=== PATIENT | male | born 1970 | race Two or more races ===

== ENCOUNTER 2018-10-13 19:34 | Emergency (ER) | payer MEDICAID, SELFPAY ==
[~2018-10-13] VITALS: Ht 167.6 cm; Wt 72.0 kg
[2018-10-13 21:27] LABS: BASOPHILS # (AUTO) 0.03 x10^3/uL (0-0.1); BASOPHILS % (AUTO) 1 % (0-1); EOSINOPHILS # (AUTO) 0.05 x10^3/uL (0-0.4); EOSINOPHILS % (AUTO) 1 % (1-7); LYMPHOCYTES # (AUTO) 3.02 x10^3/uL (1-3.4); LYMPHOCYTES % (AUTO) 47 % (22-44); MD NO; MEAN CORPUSCULAR HEMOGLOBIN 34.5 pg (27.5-34.5); MEAN CORPUSCULAR HGB CONC 32.9 g/dL (33.2-36.2); MEAN CORPUSCULAR VOLUME 104.6 fL (81-97); MEAN PLATELET VOLUME 7.4 fL (7.4-10.4); MONOCYTES # (AUTO) 0.69 x10^3/uL (0.2-0.8); MONOCYTES % (AUTO) 11 % (2-9); NEUTROPHILS # (AUTO) 2.63 x10^3/uL (1.8-6.8); NEUTROPHILS % (AUTO) 41 % (42-75); PLATELET COUNT 179 x10^3/uL (130-400); RED BLOOD COUNT 3.71 x10^6/uL (4.38-5.82); RED CELL DISTRIBUTION WIDTH 14.8 % (9.4-14.8)
[2018-10-13 21:28] LABS: ALBUMIN 3.3 g/dL (3.4-5.0); ANION GAP 9 mmol/L (5-15); CALCIUM 7.8 mg/dL (8.5-10.1); CHLORIDE 107 mmol/L (98-107)
[2018-10-13 21:34] LABS: ALANINE AMINOTRANSFERASE 37 U/L (12-78); ALKALINE PHOSPHATASE 83 U/L (45-117); BILIRUBIN,TOTAL 0.3 mg/dL (0.2-1.0); CREATININE 1.02 mg/dL (0.7-1.3); TOTAL PROTEIN 7.2 g/dL (6.4-8.2); TROPONIN I < 0.015 ng/mL (0.000-0.045)
[2018-10-13 21:54] VITALS: BP 132/81
== END 2018-10-13 22:34 | disposition home or self-care (01) ==
LOC: ED 22:09
DX: R42 Dizziness and giddiness (principal); F10.120 Alcohol abuse with intoxication, uncomplicated; Z72.9 Problem related to lifestyle, unspecified
CPT/HCPCS: 36415; 71045; 80053; 80307; 83690; 84484; 85025; 93005; 99284

== ENCOUNTER 2019-03-09 08:10 | Inpatient (IN) | payer MEDICAID ==
[~2019-03-09] VITALS: Ht 177.8 cm; Wt 63.9 kg
[2019-03-09] MEDS ORDERED: SODIUM CHLORIDE FLUSH 10ML SYR IVF ONE (08:30)
[2019-03-09] MEDS ORDERED: PLEASE ENTER HEIGHT AND WEIGHT MC SCH (08:30)
[2019-03-09] MEDS ORDERED: SODIUM CHLORIDE 0.9% 1,000ML IVBOLUS ONE ×2 (08:30)
--- NOTE | 2019-03-09 08:53 | NUR ---
Pt BIB [facility], found outside the bus station after apperently spending the night in the elements. Pt's temperature did not read for EMS, pt's temt here found to be less than 85 oral and temp would not read rectally. Pt's cold wet clothing has been removed, warming measure currently being applied, barehugger applied, warmed fluids infusing. Per EMS & past visits to this ED, pt has a past medical history of ETOH addition & seizure. Pt is not answering questions or following instuction appropriately. Bedside report to Alma RN & pt care being transferred. Pt has been moved to tr3. Primary RN Alma attempting to place howell cath to obtain core temp & for core warming, first attempt unsuccessful d/t apparent urethral stricture.
[2019-03-09] MEDS ORDERED: LIDOCAINE 2%,20 ML JEL.PF.APP MM ONE ×2 (08:54→09:30)
[2019-03-09] MEDS ORDERED: NALOXONE 0.4 MG/ML, 1ML IVPush ONE (09:00)
[2019-03-09 09:04] LABS: MEAN CORPUSCULAR HEMOGLOBIN 35.2 pg (27.5-34.5); MEAN CORPUSCULAR HGB CONC 32.5 g/dL (33.2-36.2); MEAN CORPUSCULAR VOLUME 108.2 fL (81-97); MEAN PLATELET VOLUME 7.7 fL (7.4-10.4); PLATELET COUNT 203 x10^3/uL (130-400); RED BLOOD COUNT 3.88 x10^6/uL (4.38-5.82); RED CELL DISTRIBUTION WIDTH 14.1 % (9.4-14.8)
[2019-03-09 09:07] LABS: ALANINE AMINOTRANSFERASE 62 U/L (12-78); ALBUMIN 3.1 g/dL (3.4-5.0); ANION GAP 5 mmol/L (5-15); CALCIUM 7.9 mg/dL (8.5-10.1); CHLORIDE 101 mmol/L (98-107)
[2019-03-09 09:10] LABS: ALKALINE PHOSPHATASE 126 U/L (45-117); BILIRUBIN,TOTAL 0.2 mg/dL (0.2-1.0); TOTAL PROTEIN 6.5 g/dL (6.4-8.2)
[2019-03-09 09:37] LABS: MD YES
[2019-03-09] MEDS ORDERED: FENTANYL PF 100 MCG/2ML ONE (10:06)
--- NOTE | 2019-03-09 10:10 | NUR ---
PT MED NOTED FOR THORACIC BACK PAIN. PT TO CT WITH RN & EMT TRANSPORT
[2019-03-09 10:20] LABS: BANDS%(MANUAL) 4 % (0-7); LYMPH#(MANUAL) 3.89 x10^3/uL (1-3.4); LYMPHS% (MANUAL) 48 % (22-44); REACTIVE LYMPHS # (MANUAL) 0.49 x10^3/uL (0-0); REACTIVE LYMPHS % (MANUAL) 6 % (0-0)
[2019-03-09 10:21] LABS: BAND#(MANUAL) 0.32 x10^3/uL; MONOS#(MANUAL) 0.41 x10^3/uL (0.3-2.7); MONOS% (MANUAL) 5 % (2-9)
[2019-03-09 10:22] LABS: SEGS% (MANUAL) 37 % (42-75)
[2019-03-09 10:24] LABS: <PLATELET ESTIMATE> ADEQUATE; <PLT MORPHOLOGY> NORMAL PLT MORPH; ANISOCYTOSIS 1+
[2019-03-09] MEDS ORDERED: FENTANYL PF 100 MCG/2ML IVPush ONE (10:30)
--- NOTE | 2019-03-09 10:41 | NUR ---
PT RTD FROM CT. 12FR COUDE INSERTED W/O DIFFICULTY. +CLEAR YELLOW UOP NOTED. BALLOON FILL VOLUME 5ML
[2019-03-09] MEDS ORDERED: ONDANSETRON ODT 4 MG PO PRN (11:00)
[2019-03-09] MEDS ORDERED: POLYETHYLENE GLYCOL 17 GM PACKET PO PRN (11:00)
[2019-03-09] MEDS ORDERED: OXYcodone IR 5MG TABLET PO PRN (11:00)
[2019-03-09] MEDS ORDERED: BISACODYL 10 MG SUPP PR PRN (11:00)
[2019-03-09] MEDS ORDERED: ONDANSETRON 2MG/ML, 2ML IVPush PRN (11:00)
[2019-03-09] MEDS: PLEASE ENTER ALLERGIES MC SCH ×2 (11:46→12:51)
[2019-03-09 11:48] LABS: ALANINE AMINOTRANSFERASE 54 U/L (12-78); ALBUMIN 2.7 g/dL (3.4-5.0); ANION GAP 8 mmol/L (5-15); CALCIUM 6.7 mg/dL (8.5-10.1); CHLORIDE 106 mmol/L (98-107); CREATININE 0.35 mg/dL (0.7-1.3)
[2019-03-09 11:53] LABS: TROPONIN I 0.043 ng/mL (0.000-0.045)
[2019-03-09 11:58] LABS: ALKALINE PHOSPHATASE 106 U/L (45-117); BILIRUBIN,TOTAL 0.2 mg/dL (0.2-1.0); TOTAL PROTEIN 5.7 g/dL (6.4-8.2)
[2019-03-09] MEDS ORDERED: ENOXAPARIN 40 MG/0.4 ML ONE (12:10)
[2019-03-09] MEDS: ENOXAPARIN 40 MG/0.4 ML SQ SCH (12:15)
[2019-03-09 12:17] LABS: AMPHETAMINE SCREEN, URINE Negative (Negative); BARBITURATE SCREEN, URINE Negative (Negative); BENZODIAZEPINE SCREEN, URINE Negative (Negative); CANNABINOID SCREEN, URINE Negative (Negative); COCAINE SCREEN, URINE Negative (Negative); METHADONE SCREEN, URINE Negative (Negative); OPIATE SCREEN, URINE Negative (Negative)
[2019-03-09] MEDS: SODIUM CHLORIDE 0.9% 1,000 ML IV SCH ×2 (12:51→21:20)
[2019-03-09 13:10] VITALS: BP 98/64
[2019-03-09] MEDS: POTASSIUM CHLORIDE 20 MEQ, MAGNESIUM SULFATE 1 GM, THIAMINE 200 MG, FOLIC ACID 1 MG, MV... IV SCH (13:45)
[2019-03-09] MEDS ORDERED: MAGNESIUM SULFATE PMX 2GM/50ML 50 ML IV ONE (14:30)
[2019-03-10 04:53] LABS: CHLORIDE 105 mmol/L (98-107)
[2019-03-10 05:11] LABS: ALANINE AMINOTRANSFERASE 61 U/L (12-78); ALBUMIN 2.6 g/dL (3.4-5.0); ALKALINE PHOSPHATASE 99 U/L (45-117); ANION GAP 7 mmol/L (5-15); BILIRUBIN,TOTAL 0.7 mg/dL (0.2-1.0); CALCIUM 7.1 mg/dL (8.5-10.1); CREATINE KINASE, TOTAL 2142 U/L (39-308); CREATININE 0.54 mg/dL (0.7-1.3); TOTAL PROTEIN 5.7 g/dL (6.4-8.2)
[2019-03-10 05:18] LABS: MEAN CORPUSCULAR HEMOGLOBIN 35.4 pg (27.5-34.5); MEAN CORPUSCULAR HGB CONC 32.6 g/dL (33.2-36.2); MEAN CORPUSCULAR VOLUME 108.7 fL (81-97); MEAN PLATELET VOLUME 8.5 fL (7.4-10.4); PLATELET COUNT 188 x10^3/uL (130-400); RED BLOOD COUNT 3.33 x10^6/uL (4.38-5.82); RED CELL DISTRIBUTION WIDTH 14.1 % (9.4-14.8)
[2019-03-10 05:52] LABS: BASOPHILS % (AUTO) 0 % (0-1); EOSINOPHILS % (AUTO) 0 % (1-7); LYMPHOCYTES % (AUTO) 22 % (22-44); MD SCAN; MONOCYTES # (AUTO) 0.37 x10^3/uL (0.2-0.8); MONOCYTES % (AUTO) 7 % (2-9); NEUTROPHILS # (AUTO) 3.89 x10^3/uL (1.8-6.8); NEUTROPHILS % (AUTO) 71 % (42-75)
[2019-03-10] MEDS ORDERED: MAGNESIUM SULFATE PMX 2GM/50ML 50 ML IV ONE (06:30)
[2019-03-10] MEDS ORDERED: DEXTROSE 4 GM TAB.CHEW PO PRN (06:30)
[2019-03-10] MEDS ORDERED: DEXTROSE 50%, 50ML SYRINGE IVPush PRN (06:30)
[2019-03-10] MEDS ORDERED: GLUCAGON 1 MG IM PRN (06:30)
[2019-03-10] MEDS: SODIUM CHLORIDE 0.9% 1,000 ML IV SCH ×2 (07:56→20:26)
[2019-03-10] MEDS: SODIUM CHLORIDE FLUSH 10ML SYR IVF SCH ×2 (07:56→20:26)
[2019-03-10] MEDS ORDERED: LORazepam 2 MG/ML, 1ML IVPush PRN (09:00)
[2019-03-10] MEDS ORDERED: CHLORDIAZEPOXIDE 25 MG CAPSULE PO SCH (09:00)
[2019-03-10] MEDS: SENNA/DOCUSATE TABLET PO SCH (09:40)
[2019-03-10] MEDS: ERGOCALCIFEROL 50,000 UNIT CAPSULE PO SCH (09:44)
[2019-03-10] MEDS: ENOXAPARIN 40 MG/0.4 ML SQ SCH (10:58)
[2019-03-10] MEDS: POTASSIUM CHLORIDE 20 MEQ, MAGNESIUM SULFATE 1 GM, THIAMINE 200 MG, FOLIC ACID 1 MG, MV... IV SCH (11:00)
[2019-03-10 11:42] VITALS: BP 120/74
[2019-03-10] MEDS: CHLORDIAZEPOXIDE 5 MG CAPSULE PO SCH ×2 (16:00→20:26)
[2019-03-10 17:44] VITALS: BP 135/79
[2019-03-10 20:02] VITALS: BP 131/78
[2019-03-11 03:05] VITALS: BP 137/84
[2019-03-11] MEDS: SODIUM CHLORIDE 0.9% 1,000 ML IV SCH (05:30)
[2019-03-11 05:53] LABS: MEAN CORPUSCULAR HEMOGLOBIN 35.4 pg (27.5-34.5); MEAN CORPUSCULAR VOLUME 107.4 fL (81-97); MEAN PLATELET VOLUME 8.6 fL (7.4-10.4); PLATELET COUNT 139 x10^3/uL (130-400); RED BLOOD COUNT 3.35 x10^6/uL (4.38-5.82); RED CELL DISTRIBUTION WIDTH 13.9 % (9.4-14.8)
[2019-03-11] MEDS: ACETAMINOPHEN 325 MG TABLET PO PRN (05:54)
[2019-03-11 06:00] LABS: CHLORIDE 98 mmol/L (98-107)
[2019-03-11 06:13] LABS: MD YES
[2019-03-11 06:17] LABS: ALANINE AMINOTRANSFERASE 52 U/L (12-78); ALBUMIN 2.5 g/dL (3.4-5.0); ALKALINE PHOSPHATASE 107 U/L (45-117); ANION GAP 4 mmol/L (5-15); BAND#(MANUAL) 1.26 x10^3/uL; BANDS%(MANUAL) 15 % (0-7); BILIRUBIN,TOTAL 0.7 mg/dL (0.2-1.0); CALCIUM 7.6 mg/dL (8.5-10.1); CREATINE KINASE, TOTAL 958 U/L (39-308); CREATININE 0.49 mg/dL (0.7-1.3); LYMPH#(MANUAL) 1.51 x10^3/uL (1-3.4); LYMPHS% (MANUAL) 18 % (22-44); MONOS#(MANUAL) 0.25 x10^3/uL (0.3-2.7); MONOS% (MANUAL) 3 % (2-9); SEG#(MANUAL) 5.38 x10^3/uL (1.8-6.8); SEGS% (MANUAL) 64 % (42-75); TOTAL PROTEIN 5.9 g/dL (6.4-8.2)
[2019-03-11 06:18] LABS: <PLATELET ESTIMATE> ADEQUATE; <PLT MORPHOLOGY> NORMAL PLT MORPH
[2019-03-11] MEDS ORDERED: SODIUM PHOSPHATE 20 MMOL in SODIUM CHLORIDE 0.9% 500 ML IV ONE (07:30)
[2019-03-11] MEDS ORDERED: MAGNESIUM SULFATE PMX 2GM/50ML 50 ML IV ONE (07:30)
[2019-03-11 07:51] VITALS: BP 129/72
[2019-03-11] MEDS: CHLORDIAZEPOXIDE 5 MG CAPSULE PO SCH ×3 (08:16→20:23)
[2019-03-11] MEDS: SENNA/DOCUSATE TABLET PO SCH (08:16)
[2019-03-11] MEDS: SODIUM CHLORIDE FLUSH 10ML SYR IVF SCH ×2 (08:57→20:24)
[2019-03-11] MEDS: ENOXAPARIN 40 MG/0.4 ML SQ SCH (12:04)
[2019-03-11] MEDS: POTASSIUM CHLORIDE 20 MEQ, MAGNESIUM SULFATE 1 GM, THIAMINE 200 MG, FOLIC ACID 1 MG, MV... IV SCH (12:04)
[2019-03-11 12:28] VITALS: BP 118/66
[2019-03-11] MEDS: NICOTINE 14MG/24 HR PATCH.TD24 TD SCH (18:21)
[2019-03-11 19:20] VITALS: BP 120/80
[2019-03-12 01:37] VITALS: BP 123/64
[2019-03-12] MEDS: ACETAMINOPHEN 325 MG TABLET PO PRN (07:42)
[2019-03-12 07:50] VITALS: BP 145/91
[2019-03-12] MEDS: SODIUM CHLORIDE FLUSH 10ML SYR IVF SCH ×2 (09:00→22:07)
[2019-03-12] MEDS: SENNA/DOCUSATE TABLET PO SCH (09:00)
[2019-03-12] MEDS: CHLORDIAZEPOXIDE 5 MG CAPSULE PO SCH ×3 (10:16→22:07)
[2019-03-12] MEDS: ENOXAPARIN 40 MG/0.4 ML SQ SCH (10:16)
[2019-03-12] MEDS: POTASSIUM CHLORIDE 20 MEQ, MAGNESIUM SULFATE 1 GM, THIAMINE 200 MG, FOLIC ACID 1 MG, MV... IV SCH (11:25)
[2019-03-12 12:25] VITALS: BP 109/68
[2019-03-12] MEDS: NICOTINE 14MG/24 HR PATCH.TD24 TD SCH (18:22)
[2019-03-12 18:46] VITALS: BP 137/76
[2019-03-13 01:03] VITALS: BP 128/74
[2019-03-13 06:10] LABS: ANION GAP 7 mmol/L (5-15); CALCIUM 8.3 mg/dL (8.5-10.1); CHLORIDE 103 mmol/L (98-107)
[2019-03-13 06:13] LABS: CREATININE 0.61 mg/dL (0.7-1.3)
[2019-03-13 06:58] VITALS: BP 138/81
[2019-03-13] MEDS: SENNA/DOCUSATE TABLET PO SCH (08:31)
[2019-03-13] MEDS: SODIUM CHLORIDE FLUSH 10ML SYR IVF SCH ×2 (08:32→20:56)
[2019-03-13] MEDS: CHLORDIAZEPOXIDE 5 MG CAPSULE PO SCH ×3 (08:32→20:57)
[2019-03-13] MEDS: ACETAMINOPHEN 325 MG TABLET PO PRN (09:50)
[2019-03-13] MEDS: ENOXAPARIN 40 MG/0.4 ML SQ SCH (11:53)
[2019-03-13] MEDS: POTASSIUM CHLORIDE 20 MEQ, MAGNESIUM SULFATE 1 GM, THIAMINE 200 MG, FOLIC ACID 1 MG, MV... IV SCH (11:53)
[2019-03-13] MEDS ORDERED: MAGNESIUM SULFATE PMX 2GM/50ML 50 ML IV ONE (12:30)
[2019-03-13 13:55] VITALS: BP 102/63
[2019-03-13] MEDS: NICOTINE 14MG/24 HR PATCH.TD24 TD SCH (18:13)
[2019-03-13 18:59] VITALS: BP 126/81
[2019-03-14 01:57] VITALS: BP 152/83
[2019-03-14 07:40] VITALS: BP 114/71
[2019-03-14] MEDS: CHLORDIAZEPOXIDE 5 MG CAPSULE PO SCH ×3 (08:49→21:31)
[2019-03-14] MEDS: SENNA/DOCUSATE TABLET PO SCH (08:49)
[2019-03-14] MEDS: SODIUM CHLORIDE FLUSH 10ML SYR IVF SCH ×2 (08:50→21:00)
[2019-03-14] MEDS: ENOXAPARIN 40 MG/0.4 ML SQ SCH (12:55)
[2019-03-14 14:35] VITALS: BP 128/85
[2019-03-14] MEDS: NICOTINE 14MG/24 HR PATCH.TD24 TD SCH (18:08)
[2019-03-14 19:39] VITALS: BP 112/72
[2019-03-15 02:25] VITALS: BP 120/77
[2019-03-15 05:16] LABS: ANION GAP 10 mmol/L (5-15); CALCIUM 8.7 mg/dL (8.5-10.1); CHLORIDE 102 mmol/L (98-107); CREATININE 0.72 mg/dL (0.7-1.3)
[2019-03-15 07:50] VITALS: BP 111/73
[2019-03-15] MEDS: CHLORDIAZEPOXIDE 5 MG CAPSULE PO SCH ×2 (09:32→17:18)
[2019-03-15] MEDS: ACETAMINOPHEN 325 MG TABLET PO PRN (09:32)
[2019-03-15] MEDS: SODIUM CHLORIDE FLUSH 10ML SYR IVF SCH ×2 (09:33→20:17)
[2019-03-15] MEDS: SENNA/DOCUSATE TABLET PO SCH (09:33)
[2019-03-15] MEDS: ENOXAPARIN 40 MG/0.4 ML SQ SCH (11:55)
[2019-03-15 13:50] VITALS: BP 91/51
[2019-03-15] MEDS: NICOTINE 14MG/24 HR PATCH.TD24 TD SCH (17:18)
[2019-03-15 20:36] VITALS: BP 103/58
[2019-03-16 02:26] VITALS: BP 112/63
[2019-03-16] MEDS: ACETAMINOPHEN 325 MG TABLET PO PRN (05:17)
[2019-03-16 06:48] VITALS: BP 87/61
[2019-03-16] MEDS ORDERED: SODIUM CHLORIDE 0.9% 1,000 ML IV ONE (07:30)
[2019-03-16] MEDS: SENNA/DOCUSATE TABLET PO SCH (07:51)
[2019-03-16] MEDS: SODIUM CHLORIDE FLUSH 10ML SYR IVF SCH ×2 (07:51→21:00)
[2019-03-16 08:08] LABS: ALANINE AMINOTRANSFERASE 40 U/L (12-78); ALBUMIN 2.3 g/dL (3.4-5.0); ANION GAP 8 mmol/L (5-15); CALCIUM 8.4 mg/dL (8.5-10.1); CHLORIDE 102 mmol/L (98-107); CREATININE 0.87 mg/dL (0.7-1.3)
[2019-03-16 08:11] LABS: ALKALINE PHOSPHATASE 85 U/L (45-117); BILIRUBIN,TOTAL 0.3 mg/dL (0.2-1.0); TOTAL PROTEIN 6.7 g/dL (6.4-8.2)
[2019-03-16] MEDS: ENOXAPARIN 40 MG/0.4 ML SQ SCH (11:14)
[2019-03-16 13:44] VITALS: BP 100/86
[2019-03-16] MEDS ORDERED: MAGNESIUM SULFATE PMX 2GM/50ML 50 ML IV ONE (17:00)
[2019-03-16] MEDS: NICOTINE 14MG/24 HR PATCH.TD24 TD SCH (18:01)
[2019-03-16 20:02] VITALS: BP 100/63
[2019-03-17 01:10] VITALS: BP 98/60
[2019-03-17 07:00] VITALS: BP 98/56
[2019-03-17] MEDS: SODIUM CHLORIDE FLUSH 10ML SYR IVF SCH ×2 (09:09→21:25)
[2019-03-17] MEDS: SENNA/DOCUSATE TABLET PO SCH (09:09)
[2019-03-17] MEDS: ERGOCALCIFEROL 50,000 UNIT CAPSULE PO SCH (09:09)
[2019-03-17] MEDS: THIAMINE 100MG TABLET PO SCH (09:09)
[2019-03-17] MEDS: ACETAMINOPHEN 325 MG TABLET PO PRN ×2 (09:20→21:28)
[2019-03-17] MEDS: ENOXAPARIN 40 MG/0.4 ML SQ SCH (11:20)
[2019-03-17 14:17] VITALS: BP 99/66
[2019-03-17] MEDS: NICOTINE 14MG/24 HR PATCH.TD24 TD SCH (19:36)
[2019-03-17 20:20] VITALS: BP 110/70
[2019-03-18 02:54] VITALS: BP 109/65
[2019-03-18 06:51] LABS: BASOPHILS # (AUTO) 0.04 x10^3/uL (0-0.1); BASOPHILS % (AUTO) 0 % (0-1); EOSINOPHILS # (AUTO) 0.11 x10^3/uL (0-0.4); EOSINOPHILS % (AUTO) 1 % (1-7); LYMPHOCYTES # (AUTO) 3.32 x10^3/uL (1-3.4); LYMPHOCYTES % (AUTO) 33 % (22-44); MD NO; MEAN CORPUSCULAR HEMOGLOBIN 35.4 pg (27.5-34.5); MEAN CORPUSCULAR HGB CONC 32.6 g/dL (33.2-36.2); MEAN CORPUSCULAR VOLUME 108.6 fL (81-97); MEAN PLATELET VOLUME 7.7 fL (7.4-10.4); MONOCYTES # (AUTO) 1.23 x10^3/uL (0.2-0.8); MONOCYTES % (AUTO) 12 % (2-9); NEUTROPHILS # (AUTO) 5.34 x10^3/uL (1.8-6.8); NEUTROPHILS % (AUTO) 53 % (42-75); PLATELET COUNT 602 x10^3/uL (130-400); RED BLOOD COUNT 3.25 x10^6/uL (4.38-5.82); RED CELL DISTRIBUTION WIDTH 13.4 % (9.4-14.8)
[2019-03-18 07:05] VITALS: BP 104/70
[2019-03-18] MEDS: SENNA/DOCUSATE TABLET PO SCH (09:28)
[2019-03-18] MEDS: THIAMINE 100MG TABLET PO SCH (09:28)
[2019-03-18] MEDS: SODIUM CHLORIDE FLUSH 10ML SYR IVF SCH ×2 (09:29→22:04)
[2019-03-18] MEDS: ENOXAPARIN 40 MG/0.4 ML SQ SCH (10:44)
[2019-03-18 13:44] VITALS: BP 104/70
[2019-03-18] MEDS: NICOTINE 14MG/24 HR PATCH.TD24 TD SCH (18:42)
[2019-03-18 20:25] VITALS: BP 124/79
[2019-03-19 01:54] VITALS: BP 103/65
[2019-03-19 07:51] VITALS: BP 96/66
[2019-03-19] MEDS: THIAMINE 100MG TABLET PO SCH (08:36)
[2019-03-19] MEDS: SENNA/DOCUSATE TABLET PO SCH (08:36)
[2019-03-19] MEDS: SODIUM CHLORIDE FLUSH 10ML SYR IVF SCH (08:37)
[2019-03-19] MEDS: ENOXAPARIN 40 MG/0.4 ML SQ SCH (11:59)
[2019-03-19 14:00] VITALS: BP 95/63
[2019-03-19] MEDS ORDERED: FLU VACC QS2019-20 36MOS UP/PF 0.5 ML IM-VACC ONE (14:30)
[2019-03-19] MEDS ORDERED: THIA100T67 PO (14:57)
== END 2019-03-19 15:15 | DRG 70 ==
LOC: ED 10:57 → EDIP 10:58 → ED 11:34 → CCU 12:20 → 4EST 03-10 12:15
PROVIDERS: ADMIT Internal Medicine Infectious Disease; ATTEND Hospitalist
DX: G93.41 Metabolic encephalopathy (principal); E43 Unspecified severe protein-calorie malnutrition; K85.90 Acute pancreatitis without necrosis or infection, unspecified; F10.239 Alcohol dependence with withdrawal, unspecified; M62.82 Rhabdomyolysis; N25.81 Secondary hyperparathyroidism of renal origin; E16.2 Hypoglycemia, unspecified; I95.9 Hypotension, unspecified; R68.0 Hypothermia, not associated with low environmental temperature; D53.9 Nutritional anemia, unspecified; Z68.20 Body mass index [BMI] 20.0-20.9, adult; E83.42 Hypomagnesemia; E83.51 Hypocalcemia; E86.0 Dehydration; F10.229 Alcohol dependence with intoxication, unspecified; K70.9 Alcoholic liver disease, unspecified; M50.30 Other cervical disc degeneration, unspecified cervical region; N35.819 Other urethral stricture, male, unspecified site; Y90.8 Blood alcohol level of 240 mg/100 ml or more; Z75.1 Person awaiting admission to adequate facility elsewhere
CPT/HCPCS: 36415; 70450; 71045; 72125; 80048; 80053; 80307; 82140; 82306; 82550; 82962; 83690; 83735; 83970; 84100; 84443; 84484; 85025; 87081; 90686; 93005; 93970; 96361; 96374; G0378; J1650; J2405; J3010; J3411; J3475; J3480; J7030; J7040

== ENCOUNTER 2019-04-20 19:39 | Emergency (ER) | payer MEDICAID ==
[~2019-04-20] VITALS: Ht 180.3 cm; Wt 64.0 kg
[~2019-04-20 19:39] MED LIST: THIA100T67 PO
--- NOTE | 2019-04-20 19:52 | NUR ---
PT PRESENTS TO ER BY EMS. PT COVERED IN FECAL MATTER FROM NECK LEVEL TO HIS FEET. SOCKS AND SHOES WERE SATURATED IN URINE AND FECAL MATTER. PT AXOX3 INABILITY TO AMBULATE WITH WALKER. PT AMBULATES NORMALLY AT BASELINE WITH WALKER. PT ADMITS TO CONSUMING "A LOT" OF ALCOHOL TODAY. WHEN ASKED WHY PT SOILED HIMSELF HE ANSWERS "I WAS UNABLE TO GET UP."
--- NOTE | 2019-04-20 21:04 | NUR ---
PT CLEANED AT THIS TIME. PT PROVIDED NEW CLOTHES FROM DONATION ROOM. PT IN BED ALERT, AWAKE AND ORIENTED. NADN. PT UPDATED ON POC OF DISCHARGE WHEN AMBULATORY. PT STATES 'I AM NOT LEAVING."
--- NOTE | 2019-04-20 21:44 | NUR ---
RECEIVED REPORT SHANTAL RIVERA RN, PLAN OF CARE DISCUSSED. PT SLEEPING, RESP EVEN AND UNLABORED.
[2019-04-20 22:10] VITALS: BP 154/66
--- NOTE | 2019-04-20 22:10 | NUR ---
WOKE PT UP AND DISCUSSED D/C PT STATES, "IM NOT LEAVING".
--- NOTE | 2019-04-20 22:33 | NUR ---
PT MASTERBATING IN ROOM, EXPLAINED NEED FOR D/C AND TO GET CLOTHES THAT WERE PROVIDING FOR HIM. PT DRESSED SELF AND WALKED GAIT STEADY WITH WALKER, TAXI CAB SLIP GIVEN TO PATIENT.
== END 2019-04-20 22:36 | disposition home or self-care (01) ==
LOC: ED 20:22
DX: S80.212A Abrasion, left knee, initial encounter (principal); F10.220 Alcohol dependence with intoxication, uncomplicated; L89.211 Pressure ulcer of right hip, stage 1; W18.30XA Fall on same level, unspecified, initial encounter; Y93.89 Activity, other specified; Y92.89 Other specified places as the place of occurrence of the external cause; Y99.8 Other external cause status
CPT/HCPCS: 99283

== ENCOUNTER 2019-04-22 00:13 | Emergency (ER) | payer MEDICAID ==
[~2019-04-22] VITALS: Ht 167.6 cm; Wt 65.0 kg
[2019-04-22] MEDS ORDERED: CEPHALEXIN 500 MG CAPSULE ONE (00:53)
[2019-04-22] MEDS ORDERED: SULFAMETH./TRIMETHOPRIM DS 800MG/160MG TABLET ONE (00:53)
[2019-04-22] MEDS ORDERED: CEPHALEXIN 500 MG CAPSULE PO ONE (01:00)
[2019-04-22] MEDS ORDERED: SODIUM CHLORIDE 0.9% 1,000ML IVBOLUS ONE (01:00)
[2019-04-22] MEDS ORDERED: SULFAMETH./TRIMETHOPRIM DS 800MG/160MG TABLET PO ONE (01:00)
[2019-04-22] MEDS ORDERED: THIAMINE 100MG TABLET PO ONE (01:00)
[2019-04-22] MEDS ORDERED: THIAMINE 100MG TABLET ONE (01:04)
[2019-04-22 01:05] LABS: MEAN CORPUSCULAR HEMOGLOBIN 33.8 pg (27.5-34.5); MEAN CORPUSCULAR HGB CONC 33.1 g/dL (33.2-36.2); MEAN CORPUSCULAR VOLUME 102.3 fL (81-97); MEAN PLATELET VOLUME 6.7 fL (7.4-10.4); PLATELET COUNT 345 x10^3/uL (130-400); RED BLOOD COUNT 3.32 x10^6/uL (4.38-5.82); RED CELL DISTRIBUTION WIDTH 15.4 % (9.4-14.8)
[2019-04-22 01:20] LABS: ALANINE AMINOTRANSFERASE 32 U/L (12-78); ALBUMIN 2.7 g/dL (3.4-5.0); ANION GAP 10 mmol/L (5-15); CALCIUM 7.8 mg/dL (8.5-10.1); CHLORIDE 109 mmol/L (98-107); CREATININE 0.48 mg/dL (0.7-1.3)
[2019-04-22 01:25] LABS: ALKALINE PHOSPHATASE 111 U/L (45-117); BILIRUBIN,TOTAL 0.2 mg/dL (0.2-1.0); TOTAL PROTEIN 6.4 g/dL (6.4-8.2); TROPONIN I < 0.015 ng/mL (0.000-0.045)
[2019-04-22 01:28] LABS: MD YES
[2019-04-22 01:30] LABS: ANISOCYTOSIS 1+; LYMPH#(MANUAL) 5.25 x10^3/uL (1-3.4); LYMPHS% (MANUAL) 52 % (22-44); METAMYELOCYTES% (MANUAL) 1 % (0-1); MONOS% (MANUAL) 3 % (2-9); REACTIVE LYMPHS % (MANUAL) 1 % (0-0); SEG#(MANUAL) 4.34 x10^3/uL (1.8-6.8); SEGS% (MANUAL) 43 % (42-75)
[2019-04-22 01:31] LABS: <PLATELET ESTIMATE> ADEQUATE; <PLT MORPHOLOGY> NORMAL PLT MORPH
--- NOTE | 2019-04-22 01:39 | NUR ---
PT PROVIDED WITH MANY WARM BLANKETS, ROOM WARMER APPLIED, CHANGED INTO DRY GOWN AND FRESH SOCKS. DENIES ANY FURTHER NEEDS OR CONCERNS AT THIS TIME. CALL LIGHT IN REACH.
--- NOTE | 2019-04-22 02:45 | NUR ---
PT DESATTING ON ROOM AIR INTO 60'S. UPON ENTERING ROOM, PT FOUND TO BE LYING FLAT ON HIS BACK, MOUTH OPEN, WITH SHORT PERIODS OF APNEA FOLLOWED BY LONG DEEP SNORES. PT ROUSED, ROLLED ONTO SIDE. SPO2 NOW 98% ON ROOM AIR, AND STEADY. CALL LIGHT IN REACH.
[2019-04-22 06:27] VITALS: BP 112/60
== END 2019-04-22 06:29 | disposition home or self-care (01) ==
LOC: ED 05:03
DX: F10.220 Alcohol dependence with intoxication, uncomplicated (principal); S70.211A Abrasion, right hip, initial encounter; S80.212A Abrasion, left knee, initial encounter; I95.9 Hypotension, unspecified; Y90.0 Blood alcohol level of less than 20 mg/100 ml; W18.30XA Fall on same level, unspecified, initial encounter; Y93.89 Activity, other specified; Y92.89 Other specified places as the place of occurrence of the external cause; Y99.8 Other external cause status
CPT/HCPCS: 36415; 71045; 80053; 80307; 83735; 83880; 84484; 85025; 93005; 96360; 96361; 99284; J7030

== ENCOUNTER 2019-05-18 12:23 | Emergency (ER) | payer MEDICAID, OTHER ==
[~2019-05-18] VITALS: Ht 167.6 cm; Wt 60.0 kg
--- NOTE | 2019-05-18 12:37 | NUR ---
[facility] ASKEW FROM [facility]. PT WAS SLEEPING ON THE FLOOR FOR 3 HOURS, SO [facility] WAS CALLED. +ETOH. C/O RIGHT SIDE NECK ABSCESS. BAR TENDER 18G RAC. PT CONNECTED TO MONITORING. CALL LIGHT IN REACH. WARM BLANKET PROVIDED. AWAITING ORDERS AT THIS TIME.
--- NOTE | 2019-05-18 13:23 | NUR ---
PT AT IMAGING.
--- NOTE | 2019-05-18 13:47 | NUR ---
PT BACK FROM IMAGING. PT RESTING ON CHINO.
--- NOTE | 2019-05-18 14:02 | NUR ---
PT GOING TO CT.
--- NOTE | 2019-05-18 14:15 | NUR ---
PT BACK FROM CT
--- NOTE | 2019-05-18 14:34 | NUR ---
ALL RESULTS ARE BACK AT THIS TIME. CHART UP FOR RECHECK.
--- NOTE | 2019-05-18 14:43 | NUR ---
PT SLEEPING ON GURNEY. OXYGEN LEVEL LOW, PT PLACED ON OXYGEN 2L VIA NC. PT TO BE MTF, PER .
--- NOTE | 2019-05-18 15:51 | NUR ---
PT SLEEPING ON GURNEY. NADN. DIET TRAY SET BESIDE PT FOR WHEN HE WAKES UP.
[2019-05-18 19:30] VITALS: BP 106/69
--- NOTE | 2019-05-18 19:30 | NUR ---
PT SITTING UP ON GURNEY EATING.
== END 2019-05-18 20:04 | disposition home or self-care (01) ==
LOC: ED 13:45
DX: S09.8XXA Other specified injuries of head, initial encounter (principal); S80.212A Abrasion, left knee, initial encounter; S80.211A Abrasion, right knee, initial encounter; M25.551 Pain in right hip; F10.220 Alcohol dependence with intoxication, uncomplicated; F17.200 Nicotine dependence, unspecified, uncomplicated; W01.0XXA Fall on same level from slipping, tripping and stumbling without subsequent striking against object, initial encounter; Y93.89 Activity, other specified; Y92.410 Unspecified street and highway as the place of occurrence of the external cause; Y99.8 Other external cause status
CPT/HCPCS: 70450; 71045; 99284